=== PATIENT | female | born 1995 | race Caucasian/White ===

== ENCOUNTER 2017-04-24 10:05 | Emergency (ER) | payer OTHER ==
[~2017-04-24] VITALS: Ht 165.1 cm; Wt 56.7 kg
--- NOTE | 2017-04-24 10:05 | NUR ---
C/O BARTHOLIN CYST X 4 DAYS. GOWNED PT . AWAITING MD ORDER .
[2017-04-24] MEDS ORDERED: LIDOCAINE HCL/PF 1% 30 ML SDV ONE (10:22)
--- NOTE | 2017-04-24 10:29 | NUR ---
VERBAL ORDER FROM DR SABILLON LIDOCAINE 1% LEFT AT BEDSIDE FOR MD ADMIN
--- NOTE | 2017-04-24 10:33 | NUR ---
URINE SAMPLE COLLECTED SENT TO LAB
[2017-04-24 10:39] LABS: APPEARANCE,URINE Clear (CLEAR); BILIRUBIN,URINE Negative (NEGATIVE); BLOOD, URINE Negative Ery/uL (NEGATIVE); COLOR,URINE Yellow (YELLOW); KETONES,URINE Negative (NEGATIVE); LEUKOCYTE ESTERASE ,URINE Trace (NEGATIVE); NITRITE, URINE Negative (NEGATIVE); PROTEIN,URINE >=300 mg/dl (NEGATIVE); UGLUCOSE Negative (NEGATIVE)
[2017-04-24 10:41] LABS: PREGNANCY TEST URINE QUAL NEGATIVE (NEGATIVE)
[2017-04-24 10:55] LABS: BACTERIA,URINE Moderate /HPF (None Seen); RBC,URINE 0-2 /HPF (0-2)
[2017-04-24 10:56] LABS: SQUAMOUS EPITHELIAL CELL,UR Many /HPF (None Seen)
[2017-04-24] MEDS ORDERED: ACETAMINOPHEN W/ CODEINE#3 1 EA TABLET ONE (10:59)
[2017-04-24] MEDS ORDERED: ACETAMINOPHEN W/ CODEINE#3 1 EA TABLET PO ONE (11:00)
[2017-04-24 11:18] VITALS: BP 120/74
--- NOTE | 2017-04-24 11:19 | NUR ---
Patient discharged to home in stable condition. Written and verbal after care instructions given. Patient verbalizes understanding of instruction.
== END 2017-04-24 11:19 | disposition home or self-care (01) ==
LOC: ER 10:08
DX: N75.1 Abscess of Bartholin's gland (principal)
CPT/HCPCS: 81000-TC; 84703-TC; 87086-TC; A4606; A6403; J3490; Z7610